=== PATIENT | male | born 2000 | race Caucasian/White ===

== ENCOUNTER 2020-06-04 22:48 | Emergency (ER) | payer OTHER ==
[~2020-06-04] VITALS: Ht 172.7 cm; Wt 106.1 kg
[2020-06-04 23:56] VITALS: BP 141/78
[2020-06-05] MEDS ORDERED: ACETAMINOPHEN EXTRA STRENGTH 500 MG TAB PO ONE (00:15)
--- NOTE | 2020-06-05 02:11 | NUR ---
Patient discharged with v/s stable. Written and verbal after care instructions given and explained. Patient verbalized understanding. Ambulatory with steady gait. All questions addressed prior to discharge. Advised to follow up with PMD.
[2020-06-05] MEDS ORDERED: ACETAMINOPHEN EXTRA STRENGTH 500 MG TAB ONE (02:34)
--- NOTE | 2020-06-05 02:51 | NUR ---
PATIENT ASSISTED IN THE LOBBY TO GO HOME, IN STABLE CONDITION, NO PAIN NOTED. MD TALKED TO PATIENT PRIOR TO DISCHARGE , EXPLAINED CHEST XRAY WITHIN NORMAL LIMIT.
== END 2020-06-05 02:50 | disposition home or self-care (01) ==
LOC: MED 22:48
DX: R07.9 Chest pain, unspecified (principal)
CPT/HCPCS: 71045; 93005; 99283

== ENCOUNTER 2020-09-21 23:43 | Emergency (ER) | payer OTHER ==
[~2020-09-21] VITALS: Ht 172.7 cm; Wt 102.1 kg
[2020-09-21 23:54] VITALS: BP 133/76
--- NOTE | 2020-09-21 23:54 | NUR ---
to bed ambulatory
--- NOTE | 2020-09-22 00:15 | NUR ---
Dr. Neff examining patient.
[2020-09-22 02:40] VITALS: BP 128/76
--- NOTE | 2020-09-22 02:40 | NUR ---
Patient discharged with v/s stable. Patient left without siging d/c paperwork. Ambulatory with steady gait. All questions addressed prior to discharge. Advised to follow up with PMD.
== END 2020-09-22 02:40 | disposition home or self-care (01) ==
LOC: MED 23:43
DX: F41.9 Anxiety disorder, unspecified (principal); M79.642 Pain in left hand; R25.3 Fasciculation
CPT/HCPCS: 99282

== ENCOUNTER 2020-10-12 22:34 | Emergency (ER) | payer OTHER ==
[~2020-10-12] VITALS: Ht 172.7 cm; Wt 104.3 kg
[2020-10-12 22:42] VITALS: BP 142/75
--- NOTE | 2020-10-12 22:42 | NUR ---
to bed ambulatory
--- NOTE | 2020-10-12 22:49 | NUR ---
ERMD AT BEDSIDE FOR MEDICAL EVALUATION.
--- NOTE | 2020-10-12 22:50 | NUR ---
PT ASSESSMENT COMPLETED BY MABEL, NO NURSING INTERVENTIONS NEEDED AT THIS TIME.
[2020-10-12 23:02] VITALS: BP 142/75
== END 2020-10-12 23:02 | disposition home or self-care (01) ==
LOC: MED 22:34
DX: S91.332A Puncture wound without foreign body, left foot, initial encounter (principal); W22.8XXA Striking against or struck by other objects, initial encounter; Y93.89 Activity, other specified; Y92.89 Other specified places as the place of occurrence of the external cause; Y99.8 Other external cause status
CPT/HCPCS: 99281

== ENCOUNTER 2020-10-18 21:18 | Emergency (ER) | payer OTHER ==
[~2020-10-18] VITALS: Ht 172.7 cm; Wt 104.3 kg
[2020-10-18 21:23] VITALS: BP 132/79
--- NOTE | 2020-10-18 21:23 | NUR ---
TO BED AMBULATORY
--- NOTE | 2020-10-18 22:29 | NUR ---
Dr. Pedraza examining patient.
--- NOTE | 2020-10-18 22:30 | NUR ---
PT ASSESSMENT COMPLETED BY MABEL, NO NURSING INTERVENTIONS NEEDED AT THIS TIME.
--- NOTE | 2020-10-18 22:51 | NUR ---
X-Ray at bedside.
[2020-10-18] MEDS ORDERED: NAPR-54 PO (23:30)
[2020-10-18 23:34] VITALS: BP 132/79
--- NOTE | 2020-10-18 23:34 | NUR ---
Patient discharged by Dr. Pedraza with v/s stable. Written and verbal after care instructions given and explained by Dr. Pedraza. Patient alert, oriented and verbalized understanding of instructions. Ambulatory with steady gait. All questions addressed prior to discharge. ID band removed. Patient advised to follow up with PMD. Rx of NAPROXEN given. Patient educated on indication of medication including possible reaction and side effects. Opportunity to ask questions provided and answered.
== END 2020-10-18 23:34 | disposition home or self-care (01) ==
LOC: MED 21:18
DX: S43.402A Unspecified sprain of left shoulder joint, initial encounter (principal); X58.XXXA Exposure to other specified factors, initial encounter; Y93.89 Activity, other specified; Y92.89 Other specified places as the place of occurrence of the external cause; Y99.8 Other external cause status
CPT/HCPCS: 71045; 73020; 99284

== ENCOUNTER 2020-12-03 20:51 | Emergency (ER) | payer OTHER ==
[~2020-12-03] VITALS: Ht 172.7 cm; Wt 2.7 kg
[~2020-12-03 20:51] MED LIST: NAPR-54 PO
[2020-12-03 21:10] VITALS: BP 136/86
--- NOTE | 2020-12-03 21:40 | NUR ---
Patient sitting on chair, breathing even and unlabored, NAD noted. Will continue to monitor. See patient assessment for more information.
--- NOTE | 2020-12-03 23:40 | NUR ---
Patient sitting on bed locked in lowest position, x1 side rail up. Patient denies any pain. NAD noted. Will continue to monitor.
[2020-12-04 01:24] VITALS: BP 132/74
== END 2020-12-04 01:24 | disposition home or self-care (01) ==
LOC: MED 20:51
DX: M25.562 Pain in left knee (principal); Z79.899 Other long term (current) drug therapy
CPT/HCPCS: 73562; 76881; 99284